=== PATIENT | male | born 1950 | race Caucasian/White ===

== ENCOUNTER 2021-01-16 12:30 | Outpatient (RCR) | payer MEDICARE | END 2021-04-16 | disposition home or self-care (01) | LOC: ONC 12:30 | PROVIDERS: ATTEND Radiology Radiation Oncology | DX: C61 Malignant neoplasm of prostate (principal); J43.9 Emphysema, unspecified; I11.0 Hypertensive heart disease with heart failure; F17.200 Nicotine dependence, unspecified, uncomplicated; Z85.118 Personal history of other malignant neoplasm of bronchus and lung; Z86.19 Personal history of other infectious and parasitic diseases; Z85.05 Personal history of malignant neoplasm of liver | CPT/HCPCS: 76873; G0463; 99204 ==

== ENCOUNTER → 2021-05-31 | Outpatient (CLI) | payer MEDICARE, BC | END | disposition home or self-care (01) | LOC: PREOP 05:35 | PROVIDERS: ATTEND Radiology Radiation Oncology | DX: Z01.818 Encounter for other preprocedural examination (principal) ==

== ENCOUNTER 2021-06-07 09:54 | Day surgery (SDC) | payer MEDICARE, BC ==
[2021-06-07] VITALS (10 sets, daily range): BP systolic 110–175; BP diastolic 58–112
[~2021-06-07] VITALS: Ht 180.3 cm; Wt 95.5 kg
[~2021-06-07 09:54] MED LIST: CARV12.52 PO; DILT60TA30 PO; FLUT9.9S NS; FORM20VI IH; LATA7.5D OP; MV-M1TAB20 PO; POLY17PO6 PO; RIFA550T PO; TRIA0.2581 PO
[2021-06-07] MEDS ORDERED: LACTATED RINGERS 1,000 ML IV PRN (10:15)
--- NOTE | 2021-06-07 10:19 | Progress Note-Pre Operative ---
Pre-Operative Progress Note H&P Reviewed The H&P was reviewed, patient examined and no changes noted. Date Seen by Provider: Jun 07, 2021 Time Seen by Provider: 10:18 Date H&P Reviewed: Jun 07, 2021 Time H&P Reviewed: 10:18 Pre-Operative Diagnosis: Prostate cancer cT2b, PSA 7.39, [place] 7 (3+4) ANTONIETA WILKERSON MD Jun 07, 2021 10:19
[2021-06-07] MEDS ORDERED: CIPR-226 PO (10:21)
--- NOTE | 2021-06-07 10:23 | Discharge Inst-Simple/Standard ---
Discharge Inst-Standard Reconcile Patient Problems Problems Reviewed?: Yes Discharge Medications New, Converted or Re-Newed RX: Other (already called to pharmacy 06/06/21) Patient Instructions/Follow Up Plan of Care/Instructions/FU: 1) one month post implant scan at [facility] [place] 07/03/21 at 10:30 a.m. 2) one month follow up with Dr. Xiong 07/13/21 at 2:45 p.m. Activity as Tolerated: Yes Discharge Diet: No Restrictions Other Inst to Patient Please instruct patient on hawley catheter care and self removal on Monday 06/12 in the morning. If unable to void, call Dr. Xiong's office. ANTONIETA WILKERSON MD Jun 07, 2021 10:23
[2021-06-07] MEDS ORDERED: proPOfol 200 MG/20 ML (DIPRIVAN) VIAL IV ONE (12:09)
[2021-06-07] MEDS ORDERED: ONDANSETRON 4 MG/2 ML (SDV) Z0FRAN ONE (12:09)
[2021-06-07] MEDS ORDERED: LIDOCAINE PF 2% 5 ML (XYLOCAINE) VIAL ONE (12:09)
[2021-06-07] MEDS ORDERED: fentaNYL INJ 100 MCG/2 ML AMP ONE (12:09)
[2021-06-07] MEDS ORDERED: BACITRACIN OINTMENT 28 GM TUBE ONE (13:10)
--- NOTE | 2021-06-07 13:38 | Progress Note-Post Operative ---
Post-Operative Progess Note Surgeon (s)/Bell Staff (s) Surgeon ANTONIETA WILKERSON MD Bell Staff: Iker CESAR MD Pre-Operative Diagnosis Prostate cancer cT2b, PSA 7.39, [place] 7 (3+4) Post-Operative Diagnosis Same as preop Procedure & Operative Findings Date of Procedure 06/07/21 Procedure Performed/Findings (1) 100% Cesium 131 permanent prostate seed implant (2) Injection of biodegradable hydrogel prostate-rectal spacer utilizing the SpaceOAR system (3) Cystogram Prostate volume 47 cc Anesthesia Type General Estimated Blood Loss Estimated blood loss (mL): Minimal Specimens/Packing Specimens Removed None Packing: N/A ANTONIETA WILKERSON MD Jun 07, 2021 13:38
--- NOTE | 2021-06-07 13:39 | Anesthesia-General Post-Op ---
General Patient Condition Mental Status/LOC: Same as Preop Cardiovascular: Satisfactory Nausea/Vomiting: Absent Respiratory: Satisfactory Pain: Controlled Complications: Absent Post Op Complications Complications None Follow Up Care/Instructions Patient Instructions None needed. Anesthesia/Patient Condition Patient Condition Patient is doing well, no complaints, stable vital signs, no apparent adverse anesthesia problems. No complications reported per nursing. SHELBY MILLER CRNA Jun 07, 2021 13:39
--- NOTE | 2021-06-07 13:44 | Diagnostic Imaging Report ---
INDICATION: History of prostate cancer. Brachytherapy. Fluoroscopic guidance. COMPARISON: None. TOTAL FLUOROSCOPY TIME: 9 seconds. TOTAL NUMBER OF FLUOROSCOPIC IMAGES SAVED: 1. FINDINGS: A single frontal radiographic view of the pelvis was obtained and demonstrates multiple metallic beads projecting over the central lower pelvis. Contrast is present within the urinary bladder. There is an intraluminal filling defect which appears to be on the basis of an indwelling Turcios catheter. Please note, the interpreting radiologist was not present during the procedure. IMPRESSION: Fluoroscopic guidance was provided intraoperatively as above. Dictated by: Dictated on workstation # [id number]
== END 2021-06-07 16:10 | disposition home or self-care (01) ==
LOC: SDC 09:54
PROVIDERS: ATTEND Radiology Radiation Oncology
DX: C61 Malignant neoplasm of prostate (principal); I11.0 Hypertensive heart disease with heart failure; I50.9 Heart failure, unspecified; M19.90 Unspecified osteoarthritis, unspecified site; F17.210 Nicotine dependence, cigarettes, uncomplicated; J44.9 Chronic obstructive pulmonary disease, unspecified; Z85.118 Personal history of other malignant neoplasm of bronchus and lung; Z85.05 Personal history of malignant neoplasm of liver; Z79.899 Other long term (current) drug therapy
CPT/HCPCS: 55874; 55876; 76000; 76965; 77290; 77318; 77332; 77370; 77470; 77778; 87081; C1715 ×2; C1889; C2643

== ENCOUNTER 2021-07-03 10:14 | Outpatient (RCR) | payer MEDICARE, BC ==
[~2021-07-03 10:14] MED LIST changes: +CIPR-226 PO
== END 2021-07-27 | disposition home or self-care (01) ==
LOC: ONC 10:14
PROVIDERS: ATTEND Radiology Radiation Oncology
DX: C61 Malignant neoplasm of prostate (principal); J43.9 Emphysema, unspecified; I11.0 Hypertensive heart disease with heart failure; F17.200 Nicotine dependence, unspecified, uncomplicated; Z85.118 Personal history of other malignant neoplasm of bronchus and lung; Z86.19 Personal history of other infectious and parasitic diseases; Z85.05 Personal history of malignant neoplasm of liver
CPT/HCPCS: 77290

== ENCOUNTER 2021-07-21 10:45 | Outpatient (RCR) | payer MEDICARE, BC | END 2021-07-27 | disposition home or self-care (01) | LOC: ONC 10:45 | PROVIDERS: ATTEND Radiology Radiation Oncology | DX: C61 Malignant neoplasm of prostate (principal); J44.9 Chronic obstructive pulmonary disease, unspecified; I11.0 Hypertensive heart disease with heart failure; Z85.118 Personal history of other malignant neoplasm of bronchus and lung; Z85.05 Personal history of malignant neoplasm of liver; F17.210 Nicotine dependence, cigarettes, uncomplicated | CPT/HCPCS: 77295 ==

== ENCOUNTER 2021-12-07 09:48 | Outpatient (RCR) | payer MEDICARE, BC | END 2021-12-27 | disposition home or self-care (01) | LOC: ONC 09:48 | PROVIDERS: ATTEND Radiology Radiation Oncology | DX: C61 Malignant neoplasm of prostate (principal); Z12.5 Encounter for screening for malignant neoplasm of prostate | CPT/HCPCS: G0103; G0463; 36415; 84153; 99213 ==

== ENCOUNTER 2022-06-07 08:34 | Outpatient (RCR) | payer MEDICARE | END 2022-06-26 | disposition home or self-care (01) | LOC: ONC 08:34 | PROVIDERS: ATTEND Radiology Radiation Oncology | DX: Z51.0 Encounter for antineoplastic radiation therapy (principal); C61 Malignant neoplasm of prostate; J43.9 Emphysema, unspecified; I11.0 Hypertensive heart disease with heart failure; I50.9 Heart failure, unspecified | CPT/HCPCS: G0103; G0463; 36415; 84153; 99213 ==

== ENCOUNTER 2022-12-06 09:41 | Outpatient (RCR) | payer MEDICARE, BC | END 2022-12-27 | disposition home or self-care (01) | LOC: ONC 09:41 | PROVIDERS: ATTEND Radiology Radiation Oncology | DX: C61 Malignant neoplasm of prostate (principal); J43.9 Emphysema, unspecified; I11.9 Hypertensive heart disease without heart failure | CPT/HCPCS: 84153; G0463; 36415; 99213 ==